=== PATIENT | female | born 1965 | race Caucasian/White ===

== ENCOUNTER 2016-09-07 13:49 | Inpatient (IN) | payer BC ==
[~2016-09-07] VITALS: Ht 172.7 cm; Wt 64.1 kg
[2016-09-07 15:16] LABS: EOSINOPHIL (%) 0.4 % (0-5); HEMATOCRIT 37.9 % (36.0-46.0); IMMATURE GRANULOCYTE (%) 0.3 % (0.0-0.7); INSTRUMENT ABS NEUTROPHIL CT 4.8 K/uL; LYMPHOCYTE COUNT 1.4 K/uL (1.0-2.8); MCH 31.5 PG (29.0-34.0); MCHC 32.7 G/DL (30.0-36.0); MCV 96.2 FL (83-99); MEAN PLAT.VOLUME 9.5 uM^3 (9.5-12.4); MONOCYTE (%) 7.7 % (3-12); MONOCYTE COUNT 0.5 K/uL (0-0.8); NEUTROPHIL (%) 70.9 % (45-76); NEUTROPHIL COUNT 4.8 K/uL (1.8-6.4); PLATELET COUNT 203 K/uL (156-360); RBC DIS.WIDTH-CV 12.5 % (11.8-14.6); RBC DIS.WIDTH-SD 44.1 % (39-53); RED BLOOD COUNT 3.94 M/uL (3.80-5.20); WHITE BLOOD COUNT 6.7 K/uL (4.1-10.2)
[2016-09-07 15:20] LABS: CHLORIDE 102 mEq/L (99-109); POTASSIUM 3.5 mEq/L (3.7-5.4); SODIUM 138 mEq/L (136-147)
[2016-09-07 15:22] LABS: GLUCOSE 87 mg/dL (70-99)
[2016-09-07 15:23] LABS: ANION GAP 6 MEQ/L (2-14)
[2016-09-07 15:24] LABS: TOTAL BILIRUBIN 1.4 mg/dL (0.0-1.0)
[2016-09-07 15:26] LABS: ALKALINE PHOSPHATASE 61 IU/L (3-129); GFR ESTIMATE (CALCULATED) > 59 mL/min/
[2016-09-07 15:27] LABS: UREA NITROGEN (BUN) 10 mg/dL (9-23)
[2016-09-07 16:26] LABS: CREATINE KINASE 628 IU/L (1-294)
[2016-09-07 17:34] LABS: ADD MIUA? NO; BILIRUBIN NEGATIVE; BLOOD NEGATIVE; COLOR STRAW ((YELLOW)); GLUCOSE (STRIP) NEGATIVE; KETONES 5; LEUKOCYTES NEGATIVE; NITRITE NEGATIVE; PROTEIN (STRIP) NEGATIVE; SPECIFIC GRAVITY 1.002 (1.000-1.030); UCUL ADDED? NO; UROBILINOGEN 0.2 MG/DL (0.2-1.0)
[2016-09-07] MEDS ORDERED: CITALOPRAM HBR40 MG PO (18:30)
[2016-09-07] MEDS ORDERED: TYLENOL REGULA325 MG PO (18:31)
[2016-09-07] MEDS ORDERED: IBUPROFEN200 M1 PO (18:31)
[2016-09-07] MEDS ORDERED: HYCET 7.5 MG-3473 ML PO (18:31)
[2016-09-07 20:42] VITALS: BP 126/60
[2016-09-08] VITALS (7 sets, daily range): BP systolic 115–134; BP diastolic 58–91
[2016-09-08 06:44] LABS: ANION GAP 6 MEQ/L (2-14); CHLORIDE 106 MEQ/L (99-109); CREATINE KINASE 229 IU/L (1-294); GFR ESTIMATE (CALCULATED) > 59 mL/min/; GLUCOSE 88 mg/dL (70-99); POTASSIUM 4.2 MEQ/L (3.7-5.4); SAMPLE HEMOLYSIS CHECK 0; SAMPLE ICTERIC CHECK 0; SAMPLE LIPEMIA CHECK 0; SODIUM 139 MEQ/L (136-147); UREA NITROGEN (BUN) 6 mg/dL (9-23)
[2016-09-09 03:24] VITALS: BP 122/57
[2016-09-09 07:32] LABS: ALKALINE PHOSPHATASE 104 IU/L (3-129); ANION GAP 4 MEQ/L (2-14); CHLORIDE 101 MEQ/L (99-109); GFR ESTIMATE (CALCULATED) > 59 mL/min/; GLUCOSE 86 mg/dL (70-99); SAMPLE HEMOLYSIS CHECK 0; SAMPLE ICTERIC CHECK 0; SAMPLE LIPEMIA CHECK 0; SODIUM 134 MEQ/L (136-147); TOTAL BILIRUBIN 1.1 MG/DL (0.0-1.0); UREA NITROGEN (BUN) 5 mg/dL (9-23)
[2016-09-09 07:58] VITALS: BP 132/64
[2016-09-09 08:19] LABS: CREATINE KINASE 93 IU/L (1-294)
[2016-09-09] MEDS ORDERED: CYCLOBENZAPRINE10 MG PO (10:03)
== END 2016-09-09 12:53 | disposition home or self-care (01) | DRG 558 ==
LOC: EME 13:49 → EDOF 19:21 → 5SOUTH 20:25
PROVIDERS: Physician Assistant; Physician Assistant Medical
DX: M62.82 Rhabdomyolysis (principal); T40.2X5A Adverse effect of other opioids, initial encounter; M62.838 Other muscle spasm; F41.9 Anxiety disorder, unspecified; T41.45XA Adverse effect of unspecified anesthetic, initial encounter
CPT/HCPCS: 80048; 80053; 81003; 82550; 85025; 85651; 86038; 86141; 93005; 99281; 99285; J1200; J1885; J2060; J2270; J3360; J3475; J3480; J7030